=== PATIENT | male | born 1980 | race American Indian/Alaskan Native ===

== ENCOUNTER 2023-02-12 19:49 | Inpatient (IN) | payer OTHER ==
[2023-02-12] VITALS (9 sets, daily range): BP systolic 134–154; BP diastolic 81–103
[~2023-02-12] VITALS: Ht 177.8 cm; Wt 113.4 kg
[2023-02-12 21:30] LABS: BASOPHILS ABSOLUTE AUTO 0.04 K/mm3 (0.00-0.23); BASOPHILS PERCENT AUTO 0 % (0-2); EOSINOPHILS ABSOLUTE AUTO 0.03 K/mm3 (0.00-0.68); EOSINOPHILS PERCENT AUTO 0 % (0-6); Hematocrit 45.3 % (37.0-53.0); Hemoglobin 16.6 g/dL (13.5-17.5); IMMATURE GRAN ABSOLUTE AUTO 0.07 K/mm3 (0.00-0.10); IMMATURE GRAN PERCENT AUTO 0 % (0-1); LYMPHOCYTES PERCENT AUTO 16 % (21-46); MONOCYTES ABSOLUTE AUTO 1.32 K/mm3 (0.16-1.47); MONOCYTES PERCENT AUTO 7 % (4-13); Mean Corpuscular HGB 32.9 pg (26.0-34.0); Mean Corpuscular HGB Conc 36.6 g/dL (31.5-36.5); Mean Corpuscular Volume 90 fL (80-100); Mean Platelet Volume 9.6 fL (9.1-12.4); NEUTROPHILS ABSOLUTE AUTO 13.69 K/mm3 (1.96-9.15); NEUTROPHILS PERCENT AUTO 76 % (41-73); Platelet Count 416 K/mm3 (150-400); RDW Coefficient Variation 13.6 % (11.7-14.2); RDW Standard Deviation 44.5 fL (35.1-46.3); Red Blood Cell Count 5.05 M/mm3 (4.30-5.90); White Blood Cell Count 17.95 K/mm3 (4.00-11.30)
[2023-02-12 21:43] LABS: Alanine Aminotransfer (ALT/SGP 48 U/L (12-78); Albumin, Blood 4.1 g/dL (3.4-5.0); Albumin/Globulin Ratio 1.1 (0.8-1.8); Alk Phos 67 U/L (50-136); Anion Gap 9 mmol/L (6-16); Aspartate Aminotrans (AST/SGOT 47 U/L (12-37); Bilirubin, Total 0.4 mg/dL (0.1-1.0); Blood Urea Nitrogen 23 mg/dL (8-24); Bun/Creatinine Ratio 27.2 (12.0-20.0); CHOL/HDL RATIO 5.8; CO2, Blood 21 mmol/L (21-32); Calcium, Blood 9.7 mg/dL (8.5-10.1); Chloride, Blood 113 mmol/L (98-108); Cholesterol 256 mg/dL (50-200); Creatinine, Blood 0.85 mg/dL (0.60-1.20); Globulin, Blood 3.8 g/dL (2.2-4.0); Glomerular Filtration Rate 111 (60-); Glucose, Blood 103 mg/dL (70-99); HDL Cholesterol 44 mg/dL (>39); LDL/HDL RATIO 3.5; Low Density Lipoprotein Chol 156 mg/dL (0-110); Magnesium, Blood 2.1 mg/dL (1.6-2.4); Potassium, Blood 4.1 mmol/L (3.5-5.5); Sodium, Blood 143 mmol/L (136-145); Total Protein, Blood 7.9 g/dL (6.4-8.2); Triglycerides 281 mg/dL (30-160); Very Low Density Lipoprot Chol 56 mg/dL (6-32)
[2023-02-12 21:48] LABS: International Normalized Ratio 0.91; Prothrombin Time Results 9.6 Sec (9.7-11.5)
[2023-02-13] VITALS (22 sets, daily range): BP systolic 122–170; BP diastolic 80–110
[2023-02-13 02:05] LABS: BASOPHILS ABSOLUTE AUTO 0.02 K/mm3 (0.00-0.23); BASOPHILS PERCENT AUTO 0 % (0-2); EOSINOPHILS PERCENT AUTO 0 % (0-6); Hematocrit 38.4 % (37.0-53.0); IMMATURE GRAN ABSOLUTE AUTO 0.05 K/mm3 (0.00-0.10); IMMATURE GRAN PERCENT AUTO 0 % (0-1); LYMPHOCYTES ABSOLUTE AUTO 2.07 K/mm3 (0.84-5.20); LYMPHOCYTES PERCENT AUTO 15 % (21-46); MONOCYTES ABSOLUTE AUTO 0.97 K/mm3 (0.16-1.47); MONOCYTES PERCENT AUTO 7 % (4-13); Mean Corpuscular HGB Conc 36.5 g/dL (31.5-36.5); Mean Corpuscular Volume 91 fL (80-100); NEUTROPHILS ABSOLUTE AUTO 11.04 K/mm3 (1.96-9.15); NEUTROPHILS PERCENT AUTO 78 % (41-73); Platelet Count 280 K/mm3 (150-400); RDW Coefficient Variation 13.5 % (11.7-14.2); RDW Standard Deviation 44.4 fL (35.1-46.3); Red Blood Cell Count 4.24 M/mm3 (4.30-5.90); White Blood Cell Count 14.15 K/mm3 (4.00-11.30)
[2023-02-13 02:23] LABS: Albumin, Blood 3.1 g/dL (3.4-5.0); Bilirubin, Total 0.4 mg/dL (0.1-1.0); Bun/Creatinine Ratio 20.4 (12.0-20.0); Calcium, Blood 8.1 mg/dL (8.5-10.1); Creatinine, Blood 0.74 mg/dL (0.60-1.20); Potassium, Blood 3.6 mmol/L (3.5-5.5); Total Protein, Blood 6.1 g/dL (6.4-8.2)
--- NOTE | 2023-02-13 05:21 | NUR ---
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 Right radial TR band in place, site within normal limits. Levophed running at transfer, titrated down and turned off at 2200. IV fluids running. Pt endorses very mild chest pain, greatly improved from prior to the procedure. Pt states that in the past he had an injury that left him unable to walk and required rehabilitation. He feels that his symptoms are recurring at this time. Movement and sensation in lower extremities is decreased. MD notified and hospitalist consult received for management of this issue. He is intermittently anxious, yet cooperative. One time order for ativan received from Dr. Flanagan. After receiving ativan, pt was able to sleep and remain calm for the rest of the night. Vital signs are stable, in normal sinus rhythm with occasional PVCs. He did have a 9 beat run of V-tach. Air removed from TR band per policy. TR band removed at 0100, site within normal limits. I attempted to call his relative Shanon last night per patient request, but the call went straight to voicemail. Pt requests that we attempt to contact family again this morning. Patient denies smoking history or current smoking. No ignition risks noted. No ignition policy discussed with patient and he agrees to comply. Bed alarm in place due to fall risk.
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
--- NOTE | 2023-02-13 08:35 | NUR ---
IGNITION RISK: THE PT HAS BEEN EDUCATED ON RISKS R/T IGNITION SOURCES & RISK OF INJURY WHILE OXYGEN IS IN USE. PT DENIES SMOKING & PT VERBALIZES UNDERSTANDING.
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
--- NOTE | 2023-02-13 10:40 | NUR ---
DR JANSEN UPDATE: CALL TO PROVIDER REGARDING NEW PT CONCERNS. AFTER COMPLETING ECHOCARDIOGRAM, THE PT HAS BEEN SAT UP IN BED FOR PO INTAKE. HE IS ABLE TO MOVE HIS UPPER BODY WELL, BUT NEEDS HELP ADJUSTING BLE FROM THIS RN. AFTER THIS RN EXITED THE ROOM, THE PT STS HE HEARD A "POP" IN HIS NECK & IS NOW CONCERNED THAT HE MAY HAVE A MORE EXTENSIVE INJURY THAN HE PRIOR THOUGHT. HE IS REQUESTING THAT A C-COLLAR BE PLACED A PRECAUTION. THE PROVIDER STS THAT SHE IS NOT CONCERNED & THAT THIS RN MAY PLACE A C-COLLAR ON THE PT. THIS RN HAS ALSO NOTIFIED THE PROVIDER THAT THE PT IS NOT A CANDIDATE FOR MRI UNTIL AT LEAST 6 WEEKS AFTER STENT PLACEMENT, PER MRI STAFF. SHE STS THAT SHE WILL LOOK INTO FURTHER IMAGING OPTIONS & GET BACK TO THIS RN W/ DECISION. THIS RN HAS REQUESTED THAT MARLON Henderson, NUTRITION FACULTY MEMBER, COMPLETE A SECONDARY NEURO ASSESSMENT ON THE PT R/T CONCERNS THAT A TRANSFER TO HIGHER LEVEL OF CARE MAY BE MORE APPROPRIATE FOR THIS PT. SEE RN NOTE REGARDING THIS ASSESSMENT.
--- NOTE | 2023-02-13 11:17 | NUR ---
neuro and sensation assessment Patient was on the phone talking when this RN walked in the room. Upon looking at him from bedside he was holding the phone at his left ear with his left hand. He was able to lift both and arms up above his head without difficulty. He did move his right knee and leg upward ever so slightly when he was still talking on the phone. All before starting the head to toe assessment. When testing Mr [place]: He was able to see from right eye without difficulty however he states that his left eye is cloudy. He is able to move eyes in all directions, + ALISSA. Patient is able to move all facial muscles and tongue. He has a cough and gag. He does state the senstion from the left of his lips on the left side is numb. He states his jaw on his left side is numb. He is able to left his shoulders against pressure and has good strength bilaterally upper extremeties. He has the same sensation to his shoulders and abdomen all the way to his upper hips bilaterally. From the iliac crest of both hips on down to his toes he does not feel sensation light or hard pressure. He states his lower extremeties feel cold. When doing painful pressure with pen and pointed sharp tools he and his eyes are closed I do not allicit a response, no flextion or extension noted to painful stimuli. He is however able to very slightly flex his greater toe and digits on the right foot, nothing would move on command on the left foot. He states he does have extreme pain when legs are passively lifted up even 2 cm, pain to his lower back... did not lift any further. Assessment noted and also given to primary RN.
--- NOTE | 2023-02-13 12:28 | NUR ---
Updated Dr Bush with Assessment Findings at this time. She is reviewing his treatment plan.
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
--- NOTE | 2023-02-13 13:50 | NUR ---
DR JANSEN UPDATE: PROVIDER HAS COME TO BEDSIDE TO COMPLETE A NEURO EXAM & RE-EVAL THE PT. SHE HAS CHOSEN TO CONSULT DR LENTZ, NEUROLOGIST, & ORDERED CT SCANS OF THE PT's SPINE. PER DR JANSEN, DR LENTZ SHOULD BE SEEING THE PT THIS EVENING. NO OTHER CHANGES AT THIS TIME, NO NEURO CHANGES FROM PRIOR NURSING UPDATES.
--- NOTE | 2023-02-13 14:29 | NUR ---
"Spiritual Care | Nurse request Visited Pt. at the request of attending nurse. Pt. welcomes my visit. Pt. is pleasant but unsettled by the series of events that led him to be taken to the hospital. Listen with empathy and interest. In my presence Pt. displays evidence of clear thinking and a calm demanor. Considered matters of ayla and belief. Pt. requested prayer. Prayed with Pt. Pt. verbalized gratitude for the spiritual care visit."
[2023-02-13 17:20] LABS: U Cannabinoids Screen DETECTED; U Opiates Screen DETECTED
[2023-02-13 17:21] LABS: U Amphetamine Screen Not Detected; U Barbituate Screen Not Detected; U Benzodiazapine Screen Not Detected; U Buprenorphine Screen Not Detected; U Cocaine Screen Not Detected; U Methadone Screen Not Detected; U Methamphetamine Screen Not Detected; U Oxycodone Screen Not Detected; U Phencyclidine Screen Not Detected; U Propoxyphene Screen Not Detected
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
--- NOTE | 2023-02-13 19:02 | NUR ---
CHEST PRESSURE: PT AWAKENS & BECOMES INCREASINGLY ANXIOUS, HAVING C/O CHEST PRESSURE, SOB & FEELING "TOO HOT." THIS RN HAS COMPLETED EKG AT BEDSIDE & NOTIFIED DR CORDOVA. EKG DISCUSSED & DR CORDOVA BELIEVES THAT ANXIETY IS PLAYING A LARGE PART IN THE PT's SYMPTOMS AT THIS TIME. ORDERS PLACED FOR PRN ATIVAN. THE PT IS RECEPTIVE TO THIS & AGREES THAT ANXIETY LIKELY PLAYS A ROLE IN HOW HE WAS FEELING, THE CHEST PRESSURE & DYSPNEA HAVE NOW RESOLVED.
--- NOTE | 2023-02-13 22:07 | NUR ---
ASSUMPTION OF CARE/ASSESSMENT: ASSUMED CARE OF PT AT 1900. PT IN ROOM AWAKE; A&O X 4, ANXIOUS, PLEASANT AND FOLLOWING DIRECTIONS. PT STATES VERY ANXIOUS DUE TO PTSD RELATED TO THE EVENTS THAT TOOK PLACE PRIOR TO ADMISSION WITH THE POLICE. PT REPORTS 5/10 PAIN IN LOWER BACK; MEDICATED PER EMAR. PT STATES THAT L. LEG IS MORE WEAK AND HAS MORE DECREASED/LIMITED ROM COMPARED TO R. LEG. PT ABLE TO WIGGLE TOES ON R. FOOT AND WHEN ASKED TO WIGGLE TOES ON L. FOOT IT IS OBSERVED THAT THE TOES ARE MOVING SLIGHTLY UPWARD AND DOWNWARD. PT NOT ABLE TO MOVE THE ANKLE ON BOTH LEGS. PEN RAN UP AND DOWN THE ANTERIOR PARTS OF LEGS AND PT REPORTS THAT HE IS ABLE TO FEEL PRESSURE ON BOTH LEGS. PT STATES THAT WHEN ATTEMPTING TO MOVE R. LEG MORE THAT IS CAUSES SIGNIFICANT BACK PAIN. SR ON MONITOR WITH HR 60-70'S, SBP 130-140'S, PT DENIES CHEST PAIN AT THIS TIME. PT LUNG SOUNDS ARE CLEAR THROUGHOUT WITH NC @ 2LPM WHILE SLEEPING; SPO2 98<. HYPERACTIVE BOWEL SOUNDS IN ALL QUADRANTS; ABD SOFT/NON-TENDER. PT TOLERATING PO INTAKE AT THIS TIME. SKIN WARM, PPP X 4; SOME ABRASIONS TO BACKSIDE. SANDBLAST OPERATOR ANGELICA ARRIVED TO UNIT AT 2100 TO ISSUE PT A CITATION. PT REQUESTED THIS RN TO BE IN ROOM DURING EXCHANGE. POLICE OFFICE STOOD IN DOORWAY OF ROOM AND EXPLAINED THE ISSUING CHARGES AND CORRESPONDING COURT DATE; OFFICER ALSO LEFT BUSINESS CARE WITH BADGE NUMBER ON IT. CITATION LEFT ON TABLE NEAR DOOR AND OFFICER LEFT UNIT. THIS RN TOOK CITATION TO PT. PT BACK TO SLEEP. BED LOWERED, CALL LIGHT IN REACH, WILL CONTINUE TO MONITOR.
[2023-02-14] VITALS (16 sets, daily range): BP systolic 109–160; BP diastolic 70–130
[2023-02-14 03:39] LABS: BASOPHILS ABSOLUTE AUTO 0.03 K/mm3 (0.00-0.23); BASOPHILS PERCENT AUTO 0 % (0-2); EOSINOPHILS ABSOLUTE AUTO 0.08 K/mm3 (0.00-0.68); EOSINOPHILS PERCENT AUTO 1 % (0-6); Hematocrit 41.1 % (37.0-53.0); IMMATURE GRAN ABSOLUTE AUTO 0.02 K/mm3 (0.00-0.10); IMMATURE GRAN PERCENT AUTO 0 % (0-1); LYMPHOCYTES ABSOLUTE AUTO 3.13 K/mm3 (0.84-5.20); LYMPHOCYTES PERCENT AUTO 33 % (21-46); MONOCYTES ABSOLUTE AUTO 0.86 K/mm3 (0.16-1.47); MONOCYTES PERCENT AUTO 9 % (4-13); Mean Corpuscular HGB 32.7 pg (26.0-34.0); Mean Corpuscular HGB Conc 36.5 g/dL (31.5-36.5); Mean Corpuscular Volume 90 fL (80-100); Mean Platelet Volume 9.2 fL (9.1-12.4); NEUTROPHILS ABSOLUTE AUTO 5.52 K/mm3 (1.96-9.15); NEUTROPHILS PERCENT AUTO 57 % (41-73); Platelet Count 311 K/mm3 (150-400); RDW Coefficient Variation 13.3 % (11.7-14.2); RDW Standard Deviation 43.6 fL (35.1-46.3); Red Blood Cell Count 4.59 M/mm3 (4.30-5.90); White Blood Cell Count 9.64 K/mm3 (4.00-11.30)
[2023-02-14 03:57] LABS: Albumin, Blood 3.2 g/dL (3.4-5.0); Albumin/Globulin Ratio 1.1 (0.8-1.8); Bilirubin, Total 0.8 mg/dL (0.1-1.0); Calcium, Blood 8.4 mg/dL (8.5-10.1); Creatinine, Blood 0.77 mg/dL (0.60-1.20); Potassium, Blood 3.8 mmol/L (3.5-5.5); Total Protein, Blood 6.2 g/dL (6.4-8.2)
--- NOTE | 2023-02-14 05:21 | NUR ---
SHIFT SUMMARY: NO ACUTE CHANGES; VSS THROUGHOUT THE NIGHT. PT SLEPT FOR MAJORITY OF THE NIGHT. NO WORSENING OF SENSATION/WEAKNESS IN BLE FROM PREVIOUS ASSESSMENT. PT PAIN WELL MANAGED THROUGHOUT THE NIGHT. PT USING URINAL INDEPENDENTLY TO VOID WITH 400 URINE OUTPUT THIS SHIFT. EDUCATION REGARDING IGNITION RISK AND FIRE SAFETY PROVIDED, ALONG WITH HOURLY ROUNDING FOR IGNITION SOURCES. BED LOWERED, CALL LIGHT IN REACH, WILL CONTINUE TO MONITOR UNTIL ONCOMING RN ARRIVES.
--- NOTE | 2023-02-14 16:46 | NUR ---
SHIFT SUMMARY PT DID WELL THIS SHIFT. PT HAS REMAINED AWAKE, ALERT, AND ORIENTED. PT HAS SHARED VARIOUS DETAILS OF EVENTS PRIOR TO ADMIT WITH MULTIPLE DIFFERENT STAFF MEMBERS THROUGHOUT THE DAY. PT REMAINS CALM, COOPERATIVE, AND INVOLVED IN CARE. PT HAS MADE GOOD IMPROVEMENTS WITH BLE MOBILITY. PT UP TO BEDSIDE CHAIR WITH PT/OT ASSISTANCE AND WALKER THIS SHIFT. PT HAS BEEN RECOMMENDED FOR SNF PLACEMENT AT THIS TIME. DR JANSEN AWARE OF RECOMMENDATIONS. PT IS ABLE TO TURN SELF IN BED INDEPENDENTLY. PT WITH GOOD APPETITE THIS SHIFT. VITAL SIGNS STABLE. PT ON ROOM AIR. IV'S SALINE LOCKED. PT USES URINAL TO VOID INDEPENDENTLY. NO IGNITION SOURCES IDENTIFIED. PT RECEPTIVE TO FIRE RISK EDUCATION. WILL CONTINUE TO MONITOR AND REPORT OFF TO ONCOMING RN.
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
--- NOTE | 2023-02-14 20:15 | NUR ---
UPDATE PT STATES THAT LEFT LEG STILL FEELS WEAK, BUT RIGHT LEG FEELS "A LOT STRONGER". PT ALSO DENIES CHEST PAIN.
--- NOTE | 2023-02-15 02:29 | NUR ---
TRANSFER PT TRANSFERRED TO [facility] AT 0217. BELONGINGS AND CHART W/ PT.
--- NOTE | 2023-02-15 02:31 | NUR ---
UPDATE PT INFORMED THIS RN THAT HE WANTED TO BE DNR DURING TRANSFER. ROOM 332 NURSE NOTIFIED AND STATED THAT SHE WILL CONFIRM W/ PT.
[2023-02-15 02:36] VITALS: BP 139/91
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
[2023-02-15 08:04] VITALS: BP 146/92
--- NOTE | 2023-02-15 16:43 | NUR ---
SHIFT SUMMARY PATIENT IS ALERT AND ORIENTED. PATIENT HAS HAD NO ACUTE EVENTS THIS SHIFT. VITAL SIGNS REVIEWED. PATIENT HAS HAD NO COMPLAINTS OF SOB, NAUSEA, VOMITTING OR PAIN THIS SHIFT. PATIENT HAS WORKED WELL WITH PT AND OT THIS SHIFT. BED IN LOCKED AND LOWEST POSITION. CALL LIGHT IN PLACE. WILL MONITOR UNTIL SHIFT CHANGE.
[2023-02-15 17:04] VITALS: BP 145/96
[2023-02-15 19:30] VITALS: BP 148/90
[2023-02-16 03:13] VITALS: BP 128/88
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
[2023-02-16 07:57] VITALS: BP 144/107
[2023-02-16] MEDS ORDERED: ATOR80 PO (12:09)
[2023-02-16] MEDS ORDERED: ASPI81CH PO (12:09)
[2023-02-16] MEDS ORDERED: TICA90TA PO (12:10)
[2023-02-16] MEDS ORDERED: METO50ER PO (12:10)
[2023-02-16] MEDS ORDERED: LOSA25 PO (12:10)
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
== END 2023-02-16 15:19 | disposition home or self-care (01) | DRG 247 ==
LOC: ER 19:49 → ICUE 19:55 → MEDS 19:55 → ICUE 20:17 → MEDS 02-15 02:21
PROVIDERS: Family Medicine; Student in an Organized Health Care Education/Training Program; ADMIT Internal Medicine Interventional Cardiology
PROC: 4A023N7 Measurement of Cardiac Sampling and Pressure, Left Heart, Percutaneous Approach (ICD-10-PCS; principal; 2023-02-12)
PROC: 027034Z Dilation of Coronary Artery, One Artery with Drug-eluting Intraluminal Device, Percutaneous Approach (ICD-10-PCS; 2023-02-12)
PROC: B2151ZZ Fluoroscopy of Left Heart using Low Osmolar Contrast (ICD-10-PCS; 2023-02-12)
PROC: B2111ZZ Fluoroscopy of Multiple Coronary Arteries using Low Osmolar Contrast (ICD-10-PCS; 2023-02-12)
DX: I21.19 ST elevation (STEMI) myocardial infarction involving other coronary artery of inferior wall (principal); G89.29 Other chronic pain; D72.828 Other elevated white blood cell count; M54.50 Low back pain, unspecified; I10 Essential (primary) hypertension; E66.9 Obesity, unspecified; F41.1 Generalized anxiety disorder; F60.9 Personality disorder, unspecified; Z91.013 Allergy to seafood; Z68.35 Body mass index [BMI] 35.0-35.9, adult
CPT/HCPCS: 36415; 70450; 72127; 72130; 72133; 76937; 80053; 80061; 83735; 84484; 85025; 85610; 85730; 86850; 86900; 86901; 93005; 93010; 93454; 93458; 94762; 96372-59; 97110; 97112; 97116; 97163; 97167; 97530; 97535; 99152; 99153; 99285-25; A9270; C1725; C1769; C1874; C1887; C1894; C8929; C9606; J0461; J1644; J2250; J2270; J3010; J3246; J7030; J7050; Q9957; Q9967